=== PATIENT | female | born 1975 | race Caucasian/White ===

== ENCOUNTER → 2016-05-19 | Outpatient (CLI) | payer OTHER ==
[~2016-05-19] MED LIST: CYAN10002 IM; LAMO200T38 PO; LISI40TA PO; LORA1TAB13 PO; MAGN1TAB21 PO; PARO1TAB29 PO; VITAMIN D PO; [UNRECOGNIZED DRUG - REMARK] PO
== END | disposition home or self-care (01) ==
LOC: C.LABSPEC 17:49 → C.PATHSPEC 18:12
PROVIDERS: ATTEND Nurse Practitioner Adult Health
DX: R31.29 Other microscopic hematuria (principal)

== ENCOUNTER → 2016-05-19 | Outpatient (CLI) | payer OTHER ==
--- NOTE | 2016-05-19 13:45 | DIAGNOSTIC IMAGING REPORT ---
[facility]UB CLINICAL HISTORY: Nephrolithiasis. FINDINGS: 3 AP abdominal radiographs are compared to study dated 11/11/2015 and correlated with abdominal CT dated 02/07/2015. There is a 5 mm calcification projecting over the right kidney. A 3 mm calcification projects over the left kidney. No calcifications are seen projecting along the course of the ureters. There is a nonobstructed abdominal bowel gas pattern noting moderate colonic fecal retention. The bony structures appear intact. The lung bases are clear as visualized. IMPRESSION: There are bilateral nonobstructing renal calculi, similar in appearance to prior studies. Electronically signed by: Romie Rodriguez M.D. 05/19/2016 1:44 PM Dictated Date/Time: 05/19/2016 1:42 PM
== END | disposition home or self-care (01) ==
LOC: C.RAD 12:53
PROVIDERS: ATTEND Nurse Practitioner Adult Health
DX: N20.0 Calculus of kidney (principal)

== ENCOUNTER → 2016-06-08 | Outpatient (CLI) | payer OTHER | END | disposition home or self-care (01) | LOC: C.LABSPEC 10:55 | PROVIDERS: ATTEND Urology | DX: N20.0 Calculus of kidney (principal) ==